=== PATIENT | male | born 2000 | race Hispanic/Latino ===

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

== ENCOUNTER 2019-04-20 17:31 | Emergency (ER) | payer SELFPAY ==
[2019-04-20] MEDS ORDERED: diphenhydrAMINE 25 MG CAP ONE (17:55)
[2019-04-20] MEDS ORDERED: Ibuprofen 200 MG TAB ONE (17:55)
[2019-04-20] MEDS ORDERED: predniSONE 20 MG TAB ONE (17:55)
== END 2019-04-20 19:50 | disposition home or self-care (01) ==
LOC: ERS 17:31
DX: L50.0 Allergic urticaria (principal); T36.0X5A Adverse effect of penicillins, initial encounter
CPT/HCPCS: 99283; J7512; Q0163